=== PATIENT | male | born 1970 | race Caucasian/White ===

== ENCOUNTER 2020-03-17 10:27 | Inpatient (IN) | payer OTHER ==
[2020-03-17] VITALS (480 sets, daily range): BP systolic 94–126; BP diastolic 74–98; PULSE 70–123; TEMP 97.7–98.1; O2SAT 63–100
[~2020-03-17] VITALS: Ht 182.9 cm; Wt 132.5 kg
[2020-03-17 10:49] LABS: HEMATOCRIT 51.7 % (42.0-52.0); HEMOGLOBIN 16.8 g/dl (13.5-18.0); MEAN CELL VOLUME 100 fl (80.0-100.0); MEAN CORPUSCULAR HEMOGLOBIN 32 pg (27.0-31.0); MEAN CORPUSCULAR HGB CONC 33 g/dl (33.0-37.0); MEAN PLATELET VOLUME 12.8 fl (7.4-10.4); PLATELET COUNT 147 K/mm3 (130-400); RED BLOOD COUNT 5.18 M/mm3 (4.20-5.60); REDCELL DISTRIBUTION WIDTH-CV 14.3 % (11.5-14.5)
[2020-03-17 10:56] LABS: INR 1.3 (0.8-3.0); PROTHROMBIN TIME 14.4 SECONDS (9.7-12.8)
[2020-03-17 10:58] LABS: ALBUMIN 4.2 gm/dL (3.5-5.0); CALCIUM 9.5 mg/dL (8.4-10.2); CREATININE, serum 1.02 (0.66-1.25); TOTAL PROTEIN 6.9 gm/dL (6.4-8.2)
[2020-03-17 11:10] LABS: TROPONIN-I 0.016 ng/mL (0.000-0.035)
[2020-03-17 11:37] LABS: BAND 10 % (0-10); LYMPHOCYTE 36 % (20.0-51.0); NEUTROPHILS 48 % (42.0-75.2); PLATELET ESTIMATE NORMAL (NORMAL)
[2020-03-17 11:39] LABS: ANISOCYTOSIS 1+
[2020-03-17] MEDS ORDERED: DEPAKOTE500 MG PO (11:51)
[2020-03-17] MEDS ORDERED: ELIQUIS 5MG PO (11:51)
[2020-03-17] MEDS ORDERED: BETAPACE AF80 MG/TA1 PO (11:52)
[2020-03-17] MEDS ORDERED: PRINIVIL5 MG PO (11:52)
[2020-03-17] MEDS ORDERED: CORDARONE200 MG/TAB (11:53)
[2020-03-17] MEDS ORDERED: COLCRYS0.6 MG (11:53)
[2020-03-18] VITALS (521 sets, daily range): BP systolic 99–112; BP diastolic 73–80; PULSE 60–106; TEMP 97.8–98.3; O2SAT 71–100
[2020-03-18 05:44] LABS: BASO # 0.1 (0.0-0.2); BASO % 0.5 % (0.0-2.0); EOS # 0.1 (0.0-0.7); EOS % 0.8 % (0-4.0); GRAN # 4.7 (1.4-6.5); GRAN % 43.4 % (42.2-75.2); HEMATOCRIT 44.2 % (42.0-52.0); HEMOGLOBIN 14.4 g/dl (13.5-18.0); LYMPH # 4.8 (1.2-3.4); LYMPH % 44.8 % (20.0-51.0); MEAN CELL VOLUME 100 fl (80.0-100.0); MEAN CORPUSCULAR HEMOGLOBIN 33 pg (27.0-31.0); MEAN CORPUSCULAR HGB CONC 33 g/dl (33.0-37.0); MEAN PLATELET VOLUME 13.4 fl (7.4-10.4); MONO # 1.1 (0.1-0.6); MONO % 10.2 % (1.7-9.3); PLATELET COUNT 123 K/mm3 (130-400); RED BLOOD COUNT 4.42 M/mm3 (4.20-5.60); REDCELL DISTRIBUTION WIDTH-CV 14.4 % (11.5-14.5)
[2020-03-18 05:53] LABS: CALCIUM 8.5 mg/dL (8.4-10.2); CREATININE, serum 0.91 (0.66-1.25); MAGNESIUM 1.9 mg/dL (1.6-2.3); POTASSIUM 4.2 mmol/L (3.4-5.0)
== END 2020-03-18 11:55 | disposition home or self-care (01) | DRG 310 ==
LOC: COL.ER 10:27 → IMCU 11:06
PROVIDERS: Emergency Medicine; ADMIT Student in an Organized Health Care Education/Training Program
PROC: 5A2204Z Restoration of Cardiac Rhythm, Single (ICD-10-PCS; principal; 2020-03-17)
DX: I48.91 Unspecified atrial fibrillation (principal); I10 Essential (primary) hypertension; E78.5 Hyperlipidemia, unspecified; F31.9 Bipolar disorder, unspecified; M10.9 Gout, unspecified; Z79.01 Long term (current) use of anticoagulants; Z91.14 Patient's other noncompliance with medication regimen
CPT/HCPCS: 99222-AI; 99239; J1940; J2405; J2704; J7030